=== PATIENT | female | born 1995 | race American Indian/Alaskan Native ===

== ENCOUNTER 2019-03-23 22:21 | Emergency (ER) | payer MEDICAID ==
[2019-03-23 22:56] VITALS: BP 112/62
[2019-03-23 23:47] LABS: Basophils % (Auto) 0.6 % (0.0-1.8); Eosinophils # (Auto) 0.1 K/mm3 (0.0-0.4); Eosinophils % (Auto) 1.7 % (0.0-4.3); Hematocrit 34.3 % (30.3-42.9); Hemoglobin 11.4 gm/dl (10.1-14.3); Lymphocytes # (Auto) 2.1 K/mm3 (1.2-5.4); Lymphocytes % (Auto) 39.6 % (13.4-35.0); Mean Corpuscular HGB Conc 33 % (30-34); Mean Corpuscular Volume 90 fl (79-97); Monocytes # (Auto) 0.4 K/mm3 (0.0-0.8); Platelet Count 199 K/mm3 (140-440); Red Blood Count 3.81 M/mm3 (3.65-5.03); Red Cell Distribution Width 16.1 % (13.2-15.2)
[2019-03-23 23:48] LABS: HCG Qualitative,Urine Negative (Negative)
[2019-03-24] MEDS ORDERED: LIDOCAINE VISCOUS 2% PO ONE (00:48)
[2019-03-24] MEDS ORDERED: BENTYL PO ONE (00:48)
[2019-03-24] MEDS ORDERED: ALUM-MAG HYDROX-SIMETH 200-200-20MG/5ML PO ONE (00:48)
--- NOTE | 2019-03-24 00:57 | Emergency Department Report ---
ED Chest Pain HPI - General Chief Complaint: Chest Pain Stated Complaint: DIZZINESS/FATIGUE/PAIN IN CHEST Time Seen by Provider: 03/24/19 00:10 Source: patient Mode of arrival: Ambulatory Limitations: No Limitations - History of Present Illness Initial Comments: Patient is a 23-year-old female presents to the emergency room with complaints of substernal chest pain that began 2 days ago. She describes the pain as a pressure. She has associated lightheadedness. She states she has had increased burping and gas. the patient states the pain is worse when she touches the chest. 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 She denies any shortness of breath, radiation of the pain, recent long car or plane ride, lower extremity edema, OCP use, recent surgery, recent immobilization. She has a past medical history of anemia. LNMP March 01. She states she also has a stye to her right upper eyelid. States it began yesterday. She denies any drainage, vision changes, wearing contacts. - Related Data Allergies Allergy/AdvReac Type Severity Reaction Status Date / Time acetaminophen [From Percocet] Allergy Unknown Verified 03/23/19 22:47 codeine Allergy Unknown Verified 03/23/19 22:48 oxycodone [From Percocet] Allergy Unknown Verified 03/23/19 22:47 Penicillins Allergy Unknown Verified 03/23/19 22:47 Heart Score - HEART Score History: Slightly suspicious EKG: Normal Age: < 45 Risk factors: No known risk factors Troponin: < normal limit (troponin not tested) HEART Score: 0 ED Review of Systems ROS: Stated complaint: DIZZINESS/FATIGUE/PAIN IN CHEST Other details as noted in HPI Comment: All other systems reviewed and negative ED Past Medical Hx - Past Medical History Previous Medical History?: No - Surgical History Past Surgical History?: No - Social History Smoking Status: Never Smoker Substance Use Type: Marijuana ED Physical Exam - General Limitations: No Limitations General appearance: alert, in no apparent distress - Head Head exam: Present: atraumatic, normocephalic - Eye Eye exam: Present: PERRL, other (small area of edema and erythema to the corner of the right upper eyelid, no obviuos drainage, no crusting) - Respiratory Respiratory exam: Present: normal lung sounds bilaterally, chest wall tenderness (reproducible substernal chest TTP). Absent: respiratory distress, wheezes, rales, rhonchi, stridor, accessory muscle use, decreased breath sounds, prolonged expiratory - Cardiovascular Cardiovascular Exam: Present: regular rate, normal rhythm, normal heart sounds. Absent: systolic murmur, diastolic murmur, rubs, gallop - Neurological Exam Neurological exam: Present: alert, oriented X3 - Psychiatric Psychiatric exam: Present: normal affect, normal mood - Skin Skin exam: Present: warm, dry, intact ED Course Vital Signs 03/23/19 22:53 Temperature 98.1 F Pulse Rate 60 Respiratory 18 Rate Blood Pressure 112/62 O2 Sat by Pulse 98 Oximetry JJ score - Jj Score Age > 65: (0) No Aspirin use within the Past 7 Days: (0) No 3 or more CAD Risk Factors: (0) No 2 or more Angina events in past 24 hrs: (0) No Known CAD with more than 50% Stenosis: (0) No Elevated Cardiac Markers: (0) No ST Deviation Greater than 0.5mm: (0) No JJ Score: 0 ED Medical Decision Making - Lab Data Result diagrams: 03/23/19 23:23 Lab Results 03/23/19 03/23/19 Range/Units 23:00 23:23 WBC 5.3 (4.5-11.0) K/mm3 RBC 3.81 (3.65-5.03) M/mm3 Hgb 11.4 (10.1-14.3) gm/dl Hct 34.3 (30.3-42.9) % MCV 90 (79-97) fl MCH 30 (28-32) pg MCHC 33 (30-34) % RDW 16.1 H (13.2-15.2) % Plt Count 199 (140-440) K/mm3 Lymph % (Auto) 39.6 H (13.4-35.0) % [place] % (Auto) 7.0 (0.0-7.3) % Eos % (Auto) 1.7 (0.0-4.3) % Baso % (Auto) 0.6 (0.0-1.8) % Lymph # 2.1 (1.2-5.4) K/mm3 [place] # 0.4 (0.0-0.8) K/mm3 Eos # 0.1 (0.0-0.4) K/mm3 Baso # 0.0 (0.0-0.1) K/mm3 Seg Neutrophils % 51.1 (40.0-70.0) % Seg Neutrophils # 2.7 (1.8-7.7) K/mm3 Urine HCG, Qual Negative (Negative) - Medical Decision Making Patient is a 23-year-old female presents to the emergency room with complaints of substernal chest pain that began 2 days ago. She describes the pain as a pressure. She has associated lightheadedness. She states she has had increased burping and gas. the patient states the pain is worse when she touches the chest. 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 She denies any shortness of breath, radiation of the pain, recent long car or plane ride, lower extremity edema, OCP use, recent surgery, recent immobilization. She has a past medical history of anemia. LNMP March 01. She states she also has a stye to her right upper eyelid. States it began yesterday. She denies any drainage, vision changes, wearing contacts. VSS. CBC is normal. hcg is negative. EKG WNL. on exam pt has reproducible chest wall tenderness to palpation. advised pt that she w ould need a CXR and would give her a GI cocktail for symptomatic relief. pt was agreeable with plan. XR personnel came to get pt within 10 minutes and pt eloped from the ED. did not receive meds or XR. Critical care attestation.: If time is entered above; I have spent that time in minutes in the direct care of this critically ill patient, excluding procedure time. ED Disposition Clinical Impression: Chest pain Qualifiers: Chest pain type: unspecified Qualified Code(s): R07.9 - Chest pain, unspecified Disposition: ELOPED Is pt being admited?: No Does the pt Need Aspirin: No Condition: Undetermined Instructions: Chest Pain (ED) Referrals: LLOYD PLATA MD [Primary Care Provider] - 2-3 Days
== END 2019-03-24 00:45 | disposition left against medical advice (07) ==
LOC: ED 22:21
DX: R07.2 Precordial pain (principal); R42 Dizziness and giddiness; F12.10 Cannabis abuse, uncomplicated; Z88.5 Allergy status to narcotic agent; Z88.0 Allergy status to penicillin
CPT/HCPCS: 36415; 81025; 85025; 93005; 93010; 99283

== ENCOUNTER 2019-10-27 03:10 | Emergency (ER) | payer SELFPAY ==
[2019-10-27 04:01] VITALS: BP 113/62
[2019-10-27 04:33] LABS: HCG Qualitative,Urine Negative (Negative)
[2019-10-27 04:38] LABS: Bilirubin,Urine NEG (Negative); Blood,Urine SM (Negative); Color,Urine Yellow (Yellow); Mucus,Urine FEW /HPF; Protein,Urine <15 mg/dL mg/dL (Negative); Urobilinogen,Urine < 2.0 mg/dL (<2.0)
== END 2019-10-27 08:38 | disposition left against medical advice (07) ==
LOC: ED 03:10
DX: E86.0 Dehydration (principal); Z53.21 Procedure and treatment not carried out due to patient leaving prior to being seen by health care provider
CPT/HCPCS: 81001; 81025; 87086

== ENCOUNTER 2019-10-29 20:22 | Emergency (ER) | payer SELFPAY ==
[2019-10-29 20:33] VITALS: BP 100/63
--- NOTE | 2019-10-29 21:23 | Event Note ---
ED Screening Note Date of service: 10/29/19 Time: 21:21 ED Screening Note: Patient is A0 23 yo AA female who presents to the ED with c/o acute onset persistent LLQ abdominal pain x 2 days. Patient's LMP was 09/02/19. Patient denies dyspnea, nausea, vomiting, dizziness, vaginal bleeding, fever and chills, dysuria, or vaginal; discharge This initial assessment/diagnostic orders/clinical plan/treatment(s) is/are subject to change based on patients health status, clinical progression and re- assessment by fellow clinical providers in the ED. Further treatment and workup at subsequent clinical providers discretion. Patient/guardian urged not to elope from the ED as their condition may be serious if not clinically assessed and managed. Initial orders include: CBC, CMP. hCG quant, hCG serum, UA
[2019-10-29 21:36] LABS: Basophils # (Auto) 0.1 K/mm3 (0.0-0.1); Basophils % (Auto) 0.7 % (0.0-1.8); Eosinophils # (Auto) 0.1 K/mm3 (0.0-0.4); Eosinophils % (Auto) 0.9 % (0.0-4.3); Hematocrit 38.6 % (30.3-42.9); Hemoglobin 13.5 gm/dl (10.1-14.3); Lymphocytes # (Auto) 2.3 K/mm3 (1.2-5.4); Mean Corpuscular HGB Conc 35 % (30-34); Mean Corpuscular Volume 96 fl (79-97); Monocytes # (Auto) 0.4 K/mm3 (0.0-0.8); Monocytes % (Auto) 4.5 % (0.0-7.3); Platelet Count 201 K/mm3 (140-440); Red Blood Count 4.04 M/mm3 (3.65-5.03); Red Cell Distribution Width 14.8 % (13.2-15.2)
[2019-10-29 21:58] LABS: Alanine Aminotransferase 8 units/L (7-56); Albumin 4.2 g/dL (3.9-5); BUN/Creatinine Ratio 19; Blood Urea Nitrogen 13 mg/dL (7-17); Calcium 8.7 mg/dL (8.4-10.2); Hemolysis Index 11
[2019-10-29 23:27] LABS: Bacteria,Urine 1+ /HPF (Negative); Bilirubin,Urine NEG (Negative); Blood,Urine MOD (Negative); Color,Urine Yellow (Yellow); Mucus,Urine FEW /HPF; Protein,Urine <15 mg/dL mg/dL (Negative); Urobilinogen,Urine < 2.0 mg/dL (<2.0)
--- NOTE | 2019-10-30 01:37 | Emergency Department Report ---
ED Female HPI - General Chief complaint: Abdominal Pain Stated complaint: ABDOMINAL PAIN LT SIDE Time Seen by Provider: 10/30/19 01:09 Source: patient, family Mode of arrival: Ambulatory Limitations: No Limitations - History of Present Illness Initial comments: Patient is A0 23 yo AA female who presents to the ED with c/o acute onset persistent LLQ abdominal pain x 2 days. Patient's LMP was 09/02/19. Patient denies dyspnea, nausea, vomiting, dizziness, vaginal bleeding, fever and chills, dysuria, or vaginal; discharge MD Complaint: dysuria Onset/Timin -: days(s) Radiation: suprapubic Severity: moderate Severity scale (0 -10): 4 Quality: burning, other (itching) Consistency: intermittent Improves with: none Worsens with: urination Are you Now?: No Last Menstrual Period: 09/26/19 EDC: 07/02/20 Associated Symptoms: dysuria - Related Data Sexually active: Yes Previous Rx's Medication Instructions Recorded Last Taken Type Fluconazole [Diflucan TAB] 150 mg PO ONCE #1 tablet 10/30/19 Unknown Rx Nitrofurantoin Taylor/M-Cryst 100 mg PO BID 7 Days #14 capsule 10/30/19 Unknown Rx [Macrobid CAP] metroNIDAZOLE [Flagyl] 500 mg PO BID 7 Days #14 tab 10/30/19 Unknown Rx Allergies Allergy/AdvReac Type Severity Reaction Status Date / Time acetaminophen [From Percocet] Allergy Unknown Verified 03/23/19 22:47 codeine Allergy Unknown Verified 03/23/19 22:48 oxycodone [From Percocet] Allergy Unknown Verified 03/23/19 22:47 Penicillins Allergy Unknown Verified 03/23/19 22:47 ED Review of Systems ROS: Stated complaint: ABDOMINAL PAIN LT SIDE Other details as noted in HPI Constitutional: denies: chills, fever Eyes: denies: eye pain, eye discharge, vision change ENT: denies: ear pain, throat pain Respiratory: denies: cough, shortness of breath, wheezing Cardiovascular: denies: chest pain, palpitations Endocrine: no symptoms reported Gastrointestinal: abdominal pain (superpubic ), vomiting. denies: nausea, diarrhea Genitourinary: urgency, dysuria, frequency. denies: hematuria, discharge, abnormal menses, dyspareunia Musculoskeletal: denies: back pain, joint swelling, arthralgia Skin: denies: rash, lesions Neurological: denies: headache, weakness, paresthesias Psychiatric: denies: anxiety, depression Hematological/Lymphatic: denies: easy bleeding, easy bruising ED Past Medical Hx - Past Medical History Previous Medical History?: Yes Additional medical history: ANEMIA - Surgical History Past Surgical History?: No - Social History Smoking Status: Never Smoker Substance Use Type: None - Medications Home Medications: Home Medications Medication Instructions Recorded Confirmed Last Taken Type Fluconazole [Diflucan TAB] 150 mg PO ONCE #1 tablet 10/30/19 Unknown Rx Nitrofurantoin Taylor/M-Cryst 100 mg PO BID 7 Days #14 capsule 10/30/19 Unknown Rx [Macrobid CAP] metroNIDAZOLE [Flagyl] 500 mg PO BID 7 Days #14 tab 10/30/19 Unknown Rx ED Physical Exam - General Limitations: No Limitations General appearance: alert, in no apparent distress - Head Head exam: Present: atraumatic, normocephalic - Eye Eye exam: Present: normal appearance, PERRL, EOMI Pupils: Present: normal accommodation - ENT ENT exam: Present: mucous membranes moist - Neck Neck exam: Present: normal inspection, full ROM. Absent: tenderness - Respiratory Respiratory exam: Present: normal lung sounds bilaterally. Absent: respiratory distress - Cardiovascular Cardiovascular Exam: Present: regular rate, normal rhythm. Absent: systolic murmur, diastolic murmur, rubs, gallop - GI/Abdominal GI/Abdominal exam: Present: soft, distended, normal bowel sounds. Absent: tenderness, guarding, rebound, rigid, bruit, hernia - Rectal Rectal exam: Present: deferred - Extremities Exam Extremities exam: Present: normal inspection, full ROM. Absent: tenderness - Back Exam Back exam: Present: normal inspection, full ROM. Absent: tenderness, CVA tenderness (R), CVA tenderness (L) - Neurological Exam Neurological exam: Present: alert, oriented X3, CN II-XII intact, normal gait - Psychiatric Psychiatric exam: Present: normal affect, normal mood - Skin Skin exam: Present: warm, dry, intact, normal color. Absent: rash ED Course Vital Signs 10/29/19 20:31 Temperature 98.5 F Pulse Rate 80 Respiratory 18 Rate Blood Pressure 100/63 O2 Sat by Pulse 97 Oximetry ED Medical Decision Making - Lab Data Result diagrams: 10/29/19 21:21 10/29/19 21:21 Labs 10/29/19 10/29/19 10/29/19 21:21 21:21 21:21 WBC 9.3 RBC 4.04 Hgb 13.5 Hct 38.6 MCV 96 MCH 34 H MCHC 35 H RDW 14.8 Plt Count 201 Lymph % (Auto) 25.0 Taylor % (Auto) 4.5 Eos % (Auto) 0.9 Baso % (Auto) 0.7 Lymph # 2.3 Taylor # 0.4 Eos # 0.1 Baso # 0.1 Seg Neutrophils % 68.9 Seg Neutrophils # 6.4 Sodium 134 L Potassium 3.9 Chloride 100.6 Carbon Dioxide 19 L Anion Gap 18 BUN 13 Creatinine 0.7 Estimated GFR > 60 BUN/Creatinine Ratio 19 Glucose 101 H Calcium 8.7 Total Bilirubin < 0.20 AST 15 ALT 8 Alkaline Phosphatase 59 Total Protein 8.0 Albumin 4.2 Albumin/Globulin Ratio 1.1 HCG, Qual HCG, Quant < 2 Urine Color Urine Turbidity Urine pH Ur Specific [place] Urine Protein Urine Glucose (UA) Urine Ketones Urine Blood Urine Nitrite Urine Bilirubin Urine Urobilinogen Ur Leukocyte Esterase Urine WBC (Auto) Urine RBC (Auto) U Epithel Cells (Auto) Urine Bacteria (Auto) Urine Mucus Urine Yeast (Budding) 10/29/19 10/29/19 21:21 22:50 WBC RBC Hgb Hct MCV MCH MCHC RDW Plt Count Lymph % (Auto) Taylor % (Auto) Eos % (Auto) Baso % (Auto) Lymph # Taylor # Eos # Baso # Seg Neutrophils % Seg Neutrophils # Sodium Potassium Chloride Carbon Dioxide Anion Gap BUN Creatinine Estimated GFR BUN/Creatinine Ratio Glucose Calcium Total Bilirubin AST ALT Alkaline Phosphatase Total Protein Albumin Albumin/Globulin Ratio HCG, Qual Negative HCG, Quant Urine Color Yellow Urine Turbidity Slightly-cloudy Urine pH 6.0 Ur Specific [place] 1.013 Urine Protein <15 mg/dl Urine Glucose (UA) Neg Urine Ketones Neg Urine Blood Mod Urine Nitrite Neg Urine Bilirubin Neg Urine Urobilinogen < 2.0 Ur Leukocyte Esterase Sm Urine WBC (Auto) 4.0 Urine RBC (Auto) 5.0 U Epithel Cells (Auto) 12.0 Urine Bacteria (Auto) 1+ Urine Mucus Few Urine Yeast (Budding) Few - Medical Decision Making this is a uti, yeast vaginitis, plan: macrobid, diflucan, flagyl followup with [facility] in 2-3 days , pt verbalized agreement and understanding of discharge plan. Critical care attestation.: If time is entered above; I have spent that time in minutes in the direct care of this critically ill patient, excluding procedure time. ED Disposition Clinical Impression: Candidal vaginitis UTI (urinary tract infection) Qualifiers: Urinary tract infection type: acute cystitis Hematuria presence: without hematuria Qualified Code(s): N30.00 - Acute cystitis without hematuria Disposition: TO HOME OR SELFCARE Is pt being admited?: No Does the pt Need Aspirin: No Condition: Stable Instructions: Urinary Tract Infection in Women (ED) Prescriptions: Fluconazole [Diflucan TAB] 150 mg PO ONCE #1 tablet metroNIDAZOLE [Flagyl] 500 mg PO BID 7 Days #14 tab Nitrofurantoin Taylor/M-Cryst [Macrobid CAP] 100 mg PO BID 7 Days #14 capsule Referrals: STACIE CORDERO MD [Staff Physician] - 3-5 Days Forms: Work/School Release Form(ED) Time of Disposition: 01:42
== END 2019-10-30 01:50 | disposition home or self-care (01) ==
LOC: ED 20:22
DX: B37.3 Candidiasis of vulva and vagina (principal); N39.0 Urinary tract infection, site not specified; Z86.2 Personal history of diseases of the blood and blood-forming organs and certain disorders involving the immune mechanism; Z88.6 Allergy status to analgesic agent; Z88.0 Allergy status to penicillin
CPT/HCPCS: 36415; 80053; 81001; 84702; 84703; 85025